=== PATIENT | female | born 1965 | race Caucasian/White ===

== ENCOUNTER → 2016-05-08 | Outpatient (CLI) | payer OTHER ==
[~2016-05-08] MED LIST: ABILIFY20 MG PO; ALORA1 EAC1 TD; APTIOM800 MG PO; CELEXA 20MG TAB20 MG PO; CELEXA20 MG PO; ELAVIL 25 MG TA25 MG PO; FIORICET TAB1 EA PO; GABAPENTIN300 MG PO; IMITREX100 MG PO; IMITREX6 MG/0.5 M SQ; LEVOXYL25 MCG PO; LISINOPRIL20 MG PO; LYRICA100 MG PO; OXTELLAR XR300 MG PO; OXTELLAR XR600 MG PO; PROTONIX40 MG PO; SYNTHROID 25 M25 MCG PO; TOPROL XL50 MG PO; VANCOCIN 250 M250 MG PO; ZOCOR10 MG PO
== END ==
LOC: KOH-I 13:28
DX: M84.371A Stress fracture, right ankle, initial encounter for fracture (principal)
CPT/HCPCS: 73700

== ENCOUNTER 2016-06-13 17:22 | Emergency (ER) | payer OTHER ==
[2016-06-13 18:19] LABS: HEMOGLOBIN 13.5 gm/dl (12.3-15.3); RED BLOOD COUNT 4.46 M/UL (4.00-5.10); WHITE BLOOD COUNT 10.1 K/UL (4.5-11.0)
[2016-06-13 18:48] LABS: BUN/CREATININE RATIO 18 (0-10)
== END 2016-06-13 20:17 | disposition home or self-care (01) ==
LOC: ER1 17:22
PROVIDERS: Emergency Medicine
DX: E87.1 Hypo-osmolality and hyponatremia (principal); I10 Essential (primary) hypertension; F17.210 Nicotine dependence, cigarettes, uncomplicated; Z88.6 Allergy status to analgesic agent; Z79.899 Other long term (current) drug therapy
CPT/HCPCS: 36415; 80053; 85025; 96374; 99284; J1200; J2765

== ENCOUNTER 2016-06-29 16:43 | Emergency (ER) | payer OTHER | END 2016-06-29 18:30 | disposition home or self-care (01) | LOC: ER1 16:43 | DX: I10 Essential (primary) hypertension (principal); Z88.6 Allergy status to analgesic agent | CPT/HCPCS: 99283 ==

== ENCOUNTER 2016-07-31 06:50 | Emergency (ER) | payer OTHER ==
[2016-07-31 09:02] LABS: HEMOGLOBIN 13.9 gm/dl (12.3-15.3); RED BLOOD COUNT 4.48 M/UL (4.00-5.10); WHITE BLOOD COUNT 5.6 K/UL (4.5-11.0)
[2016-07-31 09:23] LABS: BUN/CREATININE RATIO 15 (0-10)
== END 2016-07-31 12:14 | disposition home or self-care (01) ==
LOC: ER1 06:50
PROVIDERS: Emergency Medicine
DX: R60.0 Localized edema (principal); E87.1 Hypo-osmolality and hyponatremia; R06.02 Shortness of breath; I10 Essential (primary) hypertension; F17.200 Nicotine dependence, unspecified, uncomplicated; Z79.899 Other long term (current) drug therapy
CPT/HCPCS: 36415; 71010; 80053; 82550; 82553; 83874; 83880; 84484; 85025; 85379; 87040; 93005; 93971; 99284

== ENCOUNTER → 2020-03-19 | Outpatient (CLI) | payer OTHER ==
[~2020-03-19] MED LIST changes: +AIMOVIG AU70 MG/1 ML SQ; +ASPIR-TRIN325 MG PO; +AUGMENTIN 875-1 EACH PO; +BOTOX200 UNIT INJ; +BUSPAR 10MG10 MG PO; +BUTALB-ACETAMI1 EAC1 PO; +CARVEDILOL6.25 MG PO; +CATAPRES 0.1MG0.1 MG PO; +COMPOUND CREAM TD; +COZAAR100 MG PO; +CYMBALTA60 MG PO; +ELIQUIS5 MG PO; +ESTRADIOL TRAN1 EAC1 TD; +FERROUS SULFAT325 M2 PO; +FIORICET PO; +IBUPROFEN800 MG PO; +IMITREX TAB 2525 MG PO; +IMITREX6 MG/0.51 SC; +KEFLEX CAP 500500 MG PO; +KLOR-CON 1010 MEQ PO; +LAMICTAL150 MG PO; +LOVENOX SY40 MG/0.4 SQ; +LYRICA200 MG PO; +MOBIC15 MG PO; +MS CONTIN15 MG PO; +NEURONTIN300 MG PO; +NORCO 10-325 T1 EACH PO; +NORCO 7.5-3251 EACH PO; +NUEDEXTA 20-101 EACH PO; +PERCOCET 10-321 EACH PO; +PERCOCET 5-3251 EACH PO; +PHENERGAN 25 MG25 M1 PO; +PHENERGAN 50 MG50 MG PR; +PHENERGAN25 MG PR; +PROMETRIUM 200200 MG PO; +TOPROL XL100 MG PO; +UBRELVY50 MG PO; +VITAMIN B12 IM; +VITAMIN C 250250 MG PO; +VITAMIN C 500500 MG PO; +VITAMIN D250000 UNIT PO; +ZANTAC150 MG PO; +ZOCOR20 MG PO; +ZOFRAN ODT 4 MG4 MG PO; +ZOFRAN ODT 4 MG4 MG SL; +ZOFRAN ODT4 MG PO; +ZOFRAN4 MG PO; +ZYRTEC10 MG PO
== END ==
LOC: KOH-I 12:47
DX: R05 Cough (principal); S82.891K Other fracture of right lower leg, subsequent encounter for closed fracture with nonunion; J43.9 Emphysema, unspecified; Z98.890 Other specified postprocedural states; X58.XXXD Exposure to other specified factors, subsequent encounter
CPT/HCPCS: 71046; 73610

== ENCOUNTER → 2020-04-30 | Outpatient (CLI) | payer OTHER | LOC: KOH-I 12:39 | DX: M24.671 Ankylosis, right ankle (principal) | CPT/HCPCS: 73610 ==

== ENCOUNTER 2020-05-18 14:45 | Emergency (ER) | payer OTHER ==
[~2020-05-18 14:45] MED LIST changes: -KLOR-CON 1010 MEQ PO; -PHENERGAN 50 MG50 MG PR
== END 2020-05-18 18:38 | disposition home or self-care (01) ==
LOC: ER1 14:45
DX: G43.909 Migraine, unspecified, not intractable, without status migrainosus (principal); I10 Essential (primary) hypertension; E78.00 Pure hypercholesterolemia, unspecified; F17.210 Nicotine dependence, cigarettes, uncomplicated; Z90.710 Acquired absence of both cervix and uterus
CPT/HCPCS: 96374; 96375; 99284; J1100; J1200; J1885; J2765; J7030

== ENCOUNTER 2020-05-20 06:54 | Emergency (ER) | payer OTHER ==
[2020-05-20 08:09] LABS: HEMOGLOBIN 13.8 gm/dl (12.3-15.3); RED BLOOD COUNT 4.66 M/UL (4.00-5.10)
[2020-05-20 08:31] LABS: BUN/CREATININE RATIO 16 (0-10)
[2020-05-20] MEDS ORDERED: KLOR-CON 1010 MEQ PO (09:08)
== END 2020-05-20 09:27 | disposition home or self-care (01) ==
LOC: ER1 06:54
PROVIDERS: Student in an Organized Health Care Education/Training Program
DX: R11.2 Nausea with vomiting, unspecified (principal); I10 Essential (primary) hypertension; F17.210 Nicotine dependence, cigarettes, uncomplicated; Z88.6 Allergy status to analgesic agent; Z79.899 Other long term (current) drug therapy
CPT/HCPCS: 80053; 83690; 84702; 85025; 93005; 96365; 96375; 99284; J2765; J7120

== ENCOUNTER 2020-06-10 12:36 | Emergency (ER) | payer OTHER ==
[~2020-06-10 12:36] MED LIST changes: +KLOR-CON 1010 MEQ PO
== END 2020-06-10 16:24 | disposition left against medical advice (07) ==
LOC: ER1 12:36
DX: Z53.21 Procedure and treatment not carried out due to patient leaving prior to being seen by health care provider (principal)
CPT/HCPCS: 73590; 73630; 99283

== ENCOUNTER 2020-07-22 07:55 | Emergency (ER) | payer OTHER ==
[2020-07-22 08:53] LABS: HEMOGLOBIN 15.4 gm/dl (12.3-15.3); RED BLOOD COUNT 5.02 M/UL (4.00-5.10); WHITE BLOOD COUNT 14.9 K/UL (4.5-11.0)
[2020-07-22 09:23] LABS: BUN/CREATININE RATIO 18 (0-10)
[2020-07-22] MEDS ORDERED: PHENERGAN 25 MG25 M1 PO (13:13)
[2020-07-22] MEDS ORDERED: PHENERGAN 50 MG50 MG PR (13:13)
== END 2020-07-22 13:28 | disposition home or self-care (01) ==
LOC: ER1 07:55
PROVIDERS: Emergency Medicine
DX: E86.0 Dehydration (principal); R11.2 Nausea with vomiting, unspecified; K21.9 Gastro-esophageal reflux disease without esophagitis
CPT/HCPCS: 80053; 81001; 83690; 85025; 96374; 96375; 99284; C9113; J2405; J2550; J7030

== ENCOUNTER → 2020-08-01 | Outpatient (CLI) | payer OTHER ==
[~2020-08-01] MED LIST changes: +PHENERGAN 50 MG50 MG PR
== END ==
LOC: KOH-I 13:03
DX: M25.571 Pain in right ankle and joints of right foot (principal)
CPT/HCPCS: 73610

== ENCOUNTER 2020-08-16 18:25 | Emergency (ER) | payer OTHER ==
[2020-08-16 19:27] LABS: RED BLOOD COUNT 4.38 M/UL (4.00-5.10); WHITE BLOOD COUNT 12.5 K/UL (4.5-11.0)
[2020-08-16 19:41] LABS: BUN/CREATININE RATIO 18 (0-10)
== END 2020-08-16 22:12 | disposition home or self-care (01) ==
LOC: ER1 18:25
PROVIDERS: Physician Assistant
DX: R11.2 Nausea with vomiting, unspecified (principal); I10 Essential (primary) hypertension; E03.9 Hypothyroidism, unspecified; F17.210 Nicotine dependence, cigarettes, uncomplicated; Z88.8 Allergy status to other drugs, medicaments and biological substances; I73.9 Peripheral vascular disease, unspecified
CPT/HCPCS: 80053; 81001; 83690; 85025; 87086; 96374; 96375; 96376; 99283; J2405; J2550

== ENCOUNTER 2020-09-06 09:53 | Emergency (ER) | payer OTHER ==
[2020-09-06 11:54] LABS: HEMOGLOBIN 14.2 gm/dl (12.3-15.3); RED BLOOD COUNT 4.78 M/UL (4.00-5.10); WHITE BLOOD COUNT 10.9 K/UL (4.5-11.0)
[2020-09-06] MEDS ORDERED: ZOFRAN4 MG PO (13:49)
== END 2020-09-06 14:00 | disposition home or self-care (01) ==
LOC: ER1 09:53
PROVIDERS: Physician Assistant
DX: R11.2 Nausea with vomiting, unspecified (principal); Z90.710 Acquired absence of both cervix and uterus; F17.210 Nicotine dependence, cigarettes, uncomplicated
CPT/HCPCS: 80053; 81001; 83690; 85025; 96374; 96375; 99284; C9113; J2405; J7030

== ENCOUNTER 2020-09-16 12:34 | Emergency (ER) | payer OTHER ==
[2020-09-16 13:32] LABS: RED BLOOD COUNT 4.69 M/UL (4.00-5.10); WHITE BLOOD COUNT 17.1 K/UL (4.5-11.0)
[2020-09-16] MEDS ORDERED: K-DUR TAB 20 M20 MEQ PO (15:19)
[2020-09-16] MEDS ORDERED: PHENERGAN 25 MG25 M1 PO (15:19)
== END 2020-09-16 15:36 | disposition home or self-care (01) ==
LOC: ER1 12:34
PROVIDERS: Emergency Medicine
DX: K92.1 Melena (principal); E87.6 Hypokalemia; K44.9 Diaphragmatic hernia without obstruction or gangrene
CPT/HCPCS: 80053; 83690; 85025; 99284

== ENCOUNTER → 2020-10-07 | Outpatient (CLI) | payer OTHER ==
[~2020-10-07] MED LIST changes: +FLAGYL500 MG PO; +GABAPENTIN600 MG PO; +HYDROCODON-ACE1 EAC2 PO; +K-DUR TAB 20 M20 MEQ PO; +LEVOFLOXACIN500 MG PO; +SINGULAIR10 MG PO
== END ==
LOC: KOH-I 16:19
DX: M25.571 Pain in right ankle and joints of right foot (principal); M79.671 Pain in right foot; M79.661 Pain in right lower leg; M19.071 Primary osteoarthritis, right ankle and foot
CPT/HCPCS: 73590; 73610; 73630

== ENCOUNTER 2020-10-09 03:16 | Inpatient (IN) | payer OTHER ==
[~2020-10-09] VITALS: Ht 167.6 cm; Wt 71.7 kg
[~2020-10-09 03:16] MED LIST changes: -FLAGYL500 MG PO; -GABAPENTIN600 MG PO; -HYDROCODON-ACE1 EAC2 PO; -LEVOFLOXACIN500 MG PO; -SINGULAIR10 MG PO
[2020-10-09 04:11] LABS: BUN/CREATININE RATIO 8 (0-10)
[2020-10-09 04:14] LABS: HEMOGLOBIN 15.1 gm/dl (12.3-15.3); RED BLOOD COUNT 5.21 M/UL (4.00-5.10); WHITE BLOOD COUNT 15.7 K/UL (4.5-11.0)
[2020-10-09] MEDS ORDERED: BUTALB-ACETAMI1 EAC1 PO (10:20)
[2020-10-09] MEDS ORDERED: CELEXA 20MG TAB20 MG PO (10:23)
[2020-10-09] MEDS ORDERED: SINGULAIR10 MG PO (10:24)
[2020-10-09] MEDS ORDERED: HYDROCODON-ACE1 EAC2 PO (10:27)
[2020-10-09] MEDS ORDERED: GABAPENTIN600 MG PO (10:28)
[2020-10-09 22:23] LABS: ADENOVIRUS F 40/41 Not Detected (Negative); ASTROVIRUS Not Detected (Negative); CAMPYLOBACTER Not Detected (Negative); CLOSTRIDIUM DIFFICILE TOX A/B Not Detected (Negative); CRYPTOSPORIDIUM Not Detected (Negative); E.COLI 0157 Not Detected (Negative); ENTAMOEBA HISTOLYTICA Not Detected (Negative); ENTEROAGGREGATIVE E.COLI (EAEC Not Detected (Negative); ENTEROPATHOGENIC E.COLI (EPEC) Not Detected (Negative); ENTEROTOXIGENIC E.COLI (ETEC) Not Detected (Negative); GIARDIA LAMBLIA Not Detected (Negative); NOROVIRUS GI/GII Not Detected (Negative); PLESIOMONAS SHIGELLOIDES Not Detected (Negative); ROTOVIRUS A Not Detected (Negative); SALMONELLA Not Detected (Negative); SAPOVIRUS Not Detected (Negative); SHIG/ENTEROINVAS.ECOLI (EIEC) Not Detected (Negative); SHIGA-LIK TOX.PRO.E.COLI (STEC Not Detected (Negative); VIBRIO Not Detected (Negative); VIBRIO CHOLERAE Not Detected (Negative); YERSINIA ENTEROCOLITICA Not Detected (Negative)
[2020-10-10 07:18] LABS: RED BLOOD COUNT 4.23 M/UL (4.00-5.10); WHITE BLOOD COUNT 9.5 K/UL (4.5-11.0)
[2020-10-10 07:29] LABS: BUN/CREATININE RATIO 8 (0-10)
[2020-10-10] MEDS ORDERED: LEVOFLOXACIN500 MG PO (10:40)
[2020-10-10] MEDS ORDERED: FLAGYL500 MG PO (10:40)
== END 2020-10-10 17:39 | disposition home or self-care (01) | DRG 392 ==
LOC: ER1 03:16 → M/S 08:26 → CDU 08:26 → M/S 16:02
PROVIDERS: Physician Assistant; Physician Assistant Medical; ADMIT Internal Medicine
DX: K52.9 Noninfective gastroenteritis and colitis, unspecified (principal); E87.1 Hypo-osmolality and hyponatremia; E87.6 Hypokalemia; E83.42 Hypomagnesemia; G40.909 Epilepsy, unspecified, not intractable, without status epilepticus; Z20.822 Contact with and (suspected) exposure to COVID-19; E78.5 Hyperlipidemia, unspecified; E03.9 Hypothyroidism, unspecified; Z96.661 Presence of right artificial ankle joint; E86.0 Dehydration; K82.8 Other specified diseases of gallbladder; I10 Essential (primary) hypertension; G43.909 Migraine, unspecified, not intractable, without status migrainosus; F32.9 Major depressive disorder, single episode, unspecified; K21.9 Gastro-esophageal reflux disease without esophagitis; Z79.890 Hormone replacement therapy; Z90.710 Acquired absence of both cervix and uterus; Z98.890 Other specified postprocedural states; Z82.49 Family history of ischemic heart disease and other diseases of the circulatory system; Z79.899 Other long term (current) drug therapy
CPT/HCPCS: 36415; 76700; 80048; 80053; 83690; 83735; 84132; 85025; 85027; 87507; 93005; 96374; 96375; 99285; J1956; J2270; J2405; J2550; J3480; J7030; Q9967; U0002

== ENCOUNTER → 2020-10-29 | Outpatient (CLI) | payer OTHER ==
[~2020-10-29] MED LIST changes: +FLAGYL500 MG PO; +GABAPENTIN600 MG PO; +HYDROCODON-ACE1 EAC2 PO; +LEVOFLOXACIN500 MG PO; +SINGULAIR10 MG PO
== END ==
LOC: MAMO 09-18 08:40
DX: Z12.31 Encounter for screening mammogram for malignant neoplasm of breast (principal)
CPT/HCPCS: 77063; 77067

== ENCOUNTER → 2020-11-05 | Outpatient (CLI) | payer OTHER | LOC: KOH-I 12:25 | DX: M25.571 Pain in right ankle and joints of right foot (principal) | CPT/HCPCS: 73610 ==

== ENCOUNTER 2020-11-09 17:27 | Emergency (ER) | payer OTHER ==
[2020-11-09 19:04] LABS: HEMOGLOBIN 15.4 gm/dl (12.3-15.3); RED BLOOD COUNT 5.31 M/UL (4.00-5.10)
[2020-11-09 19:29] LABS: BUN/CREATININE RATIO 14 (0-10)
[2020-11-09] MEDS ORDERED: PHENERGAN 50 MG50 MG PR (21:00)
[2020-11-10] MEDS ORDERED: ZOFRAN ODT 4 MG4 MG PO (08:50)
== END 2020-11-09 21:30 | disposition home or self-care (01) ==
LOC: ER1 17:27
DX: R11.2 Nausea with vomiting, unspecified (principal); R10.9 Unspecified abdominal pain; E03.9 Hypothyroidism, unspecified; G40.909 Epilepsy, unspecified, not intractable, without status epilepticus; F17.210 Nicotine dependence, cigarettes, uncomplicated; Z90.710 Acquired absence of both cervix and uterus; I10 Essential (primary) hypertension
CPT/HCPCS: 80053; 83605; 83690; 85025; 96365; 96375; 99284; J2270; J2405; J2550; J7030; Q9967

== ENCOUNTER 2020-11-10 05:54 | Emergency (ER) | payer OTHER ==
[2020-11-10 06:36] LABS: HEMOGLOBIN 15.3 gm/dl (12.3-15.3); RED BLOOD COUNT 5.26 M/UL (4.00-5.10); WHITE BLOOD COUNT 10.5 K/UL (4.5-11.0)
[2020-11-10 06:57] LABS: BUN/CREATININE RATIO 16 (0-10)
[2020-11-10] MEDS ORDERED: ZOFRAN ODT 4 MG4 MG PO (08:50)
== END 2020-11-10 11:46 | disposition home or self-care (01) ==
LOC: ER1 05:54
PROVIDERS: Physician Assistant
DX: K44.9 Diaphragmatic hernia without obstruction or gangrene (principal); I10 Essential (primary) hypertension; Z88.6 Allergy status to analgesic agent; F17.210 Nicotine dependence, cigarettes, uncomplicated
CPT/HCPCS: 80053; 81001; 83605; 83690; 85025; 87086; 94760; 96374; 96375; 99284; J0360; J2270; J2405; J2765; J7030

== ENCOUNTER → 2021-02-06 | Outpatient (CLI) | payer OTHER | LOC: KOH-I 13:15 | DX: M25.571 Pain in right ankle and joints of right foot (principal); S82.301D Unspecified fracture of lower end of right tibia, subsequent encounter for closed fracture with routine healing | CPT/HCPCS: 73590; 73610; 73630 ==

== ENCOUNTER → 2021-07-07 | Outpatient (CLI) | payer OTHER | LOC: KOH-I 10:42 | DX: M79.671 Pain in right foot (principal); S82.891D Other fracture of right lower leg, subsequent encounter for closed fracture with routine healing; M19.071 Primary osteoarthritis, right ankle and foot; Z98.1 Arthrodesis status | CPT/HCPCS: 73610; 73630 ==

== ENCOUNTER 2021-07-19 16:45 | Observation (INO) | payer OTHER ==
[~2021-07-19] VITALS: Ht 167.6 cm; Wt 71.7 kg
[2021-07-19 17:50] LABS: HEMOGLOBIN 9.1 gm/dl (12.3-15.3); RED BLOOD COUNT 3.83 M/UL (4.00-5.10)
[2021-07-20 03:38] LABS: HEMOGLOBIN 8.8 gm/dl (12.3-15.3); RED BLOOD COUNT 3.67 M/UL (4.00-5.10); WHITE BLOOD COUNT 12.3 K/UL (4.5-11.0)
[2021-07-20 07:08] LABS: BUN/CREATININE RATIO 32 (0-10)
[2021-07-20] MEDS ORDERED: PROAIR HFA8.5 GM INH (09:33)
[2021-07-20] MEDS ORDERED: MEDROL TAB 4 MG4 MG PO (09:33)
[2021-07-20] MEDS ORDERED: OMNICEF 300 MG300 MG PO (09:33)
[2021-07-20] MEDS ORDERED: DOXYCYCLINE HY100 MG PO (09:33)
== END 2021-07-20 12:46 | disposition home or self-care (01) ==
LOC: ER1 16:45 → CDU 22:55 → MED SURG 4 22:55
PROVIDERS: Physician Assistant Medical; ADMIT Internal Medicine
DX: N17.9 Acute kidney failure, unspecified (principal); E86.0 Dehydration; J18.9 Pneumonia, unspecified organism; E87.6 Hypokalemia; I10 Essential (primary) hypertension; G40.909 Epilepsy, unspecified, not intractable, without status epilepticus; G62.9 Polyneuropathy, unspecified; E03.9 Hypothyroidism, unspecified; G89.4 Chronic pain syndrome; F17.210 Nicotine dependence, cigarettes, uncomplicated; J32.9 Chronic sinusitis, unspecified; E87.1 Hypo-osmolality and hyponatremia; D64.9 Anemia, unspecified; I82.90 Acute embolism and thrombosis of unspecified vein; K21.9 Gastro-esophageal reflux disease without esophagitis; B37.0 Candidal stomatitis; Z20.822 Contact with and (suspected) exposure to COVID-19; Z88.6 Allergy status to analgesic agent; Z79.890 Hormone replacement therapy; Z79.899 Other long term (current) drug therapy
CPT/HCPCS: 0240U; 36415; 36600; 51701; 71045; 80053; 81001; 82550; 82553; 82803; 83735; 83874; 84132; 84439; 84443; 84484; 85025; 93005; 99285; G0378; J0696; J7030

== ENCOUNTER → 2021-08-18 | Outpatient (CLI) | payer OTHER ==
[~2021-08-18] MED LIST changes: +DOXYCYCLINE HY100 MG PO; +MEDROL TAB 4 MG4 MG PO; +OMNICEF 300 MG300 MG PO; +PROAIR HFA8.5 GM INH
== END ==
LOC: KOH-I 08:20
DX: T84.84XA Pain due to internal orthopedic prosthetic devices, implants and grafts, initial encounter (principal); Z98.1 Arthrodesis status
CPT/HCPCS: 73610

== ENCOUNTER → 2021-09-29 | Outpatient (CLI) | payer OTHER | LOC: KOH-I 08:36 | DX: M25.571 Pain in right ankle and joints of right foot (principal); M19.071 Primary osteoarthritis, right ankle and foot; Z96.7 Presence of other bone and tendon implants | CPT/HCPCS: 73610 ==

== ENCOUNTER → 2021-10-07 | Outpatient (CLI) | payer OTHER ==
[~2021-10-07] MED LIST changes: +CARVEDILOL12.5 MG PO; +CELEXA40 MG PO; +DEXILANT60 MG PO; +IMITREX; +LOSARTAN POTASS50 MG PO; +PROGESTERONE200 MG PO; +PROMETHAZINE HC25 M1 PO; +VITAMIN B; +VITAMIN D21250 MCG PO
[2021-10-07 11:11] LABS: HEMOGLOBIN 11.7 gm/dl (12.3-15.3); RED BLOOD COUNT 4.28 M/UL (4.00-5.10); WHITE BLOOD COUNT 10.8 K/UL (4.5-11.0)
[2021-10-07 11:28] LABS: BUN/CREATININE RATIO 24 (0-10)
== END ==
LOC: OPSV2 10:00
PROVIDERS: Podiatrist Foot & Ankle Surgery
DX: Z01.818 Encounter for other preprocedural examination (principal); T84.84XA Pain due to internal orthopedic prosthetic devices, implants and grafts, initial encounter
CPT/HCPCS: 80048; 85027; 93005

== ENCOUNTER → 2021-10-10 | Day surgery (SDC) | payer OTHER ==
[~2021-10-10] VITALS: Ht 167.6 cm; Wt 70.3 kg
== END | disposition home or self-care (01) ==
LOC: OR 05:56
DX: T84.84XA Pain due to internal orthopedic prosthetic devices, implants and grafts, initial encounter (principal); J44.9 Chronic obstructive pulmonary disease, unspecified; F17.210 Nicotine dependence, cigarettes, uncomplicated; E03.9 Hypothyroidism, unspecified; Z79.899 Other long term (current) drug therapy
CPT/HCPCS: 73600; 73610; 76000; J0690; J1100; J1170; J1885; J2001; J2250; J2405; J2704; J2795; J3370